=== PATIENT | female | born 1955 | race Asian ===

== ENCOUNTER 2018-07-11 12:05 | Day surgery (SDC) | payer OTHER ==
[~2018-07-11 12:05] MED LIST: CEFAZOLIN 1 GM INJ; PROPOFOL 200 MG INJ; SUCCINYLCHOLINE CHLORIDE 100 MG/5 ML SYG IV
[2018-07-11] MEDS ORDERED: CEFAZOLIN 2 GM/50 ML (PMX) 50 ML IVPB (13:00)
[2018-07-11] MEDS ORDERED: LACTATED RINGER'S 1,000 ML IV* (13:00)
[2018-07-11] MEDS ORDERED: FENTAnyl 50 MCG/ML VIAL IV ×2 (14:00)
[2018-07-11] MEDS ORDERED: HYDROmorphONE 1 MG/5 ML IV SYRINGE IV ×2 (14:00)
[2018-07-11] MEDS ORDERED: hydrALAzine 20 MG INJ IV (14:00)
[2018-07-11] MEDS ORDERED: METOCLOPRAMIDE 10 MG INJ IV (14:00)
[2018-07-11] MEDS ORDERED: MEPERIDINE 25 MG INJ IV (14:00)
[2018-07-11] MEDS ORDERED: ONDANSETRON 4 MG INJ IV (14:00)
[2018-07-11] MEDS ORDERED: LABETALOL HCL 20MG INJ IV (14:00)
[2018-07-11] MEDS ORDERED: MIDAZOLAM 1 MG/ML 2 ML INJ (14:01)
[2018-07-11] MEDS ORDERED: LIDOCAINE 100 MG SYRINGE (14:01)
[2018-07-11] MEDS ORDERED: FENTAnyl 50 MCG/ML VIAL (14:01)
[2018-07-11] MEDS: BUPIVACAINE 0.25% (MPF) 30 ML INJ (14:43)
[2018-07-11] MEDS ORDERED: DEXAMETHASONE 4 MG/ML 1 ML INJ (14:44)
[2018-07-11] MEDS ORDERED: ONDANSETRON 4 MG INJ (14:44)
[2018-07-11] MEDS: POLYMYXIN/BACITRACIN 1L IRRIG (14:44)
== END 2018-07-11 17:15 | disposition home or self-care (01) ==
LOC: SDS 12:05
DX: G56.01 Carpal tunnel syndrome, right upper limb (principal); M65.331 Trigger finger, right middle finger
CPT/HCPCS: 26055